=== PATIENT | female | born 1990 | race Caucasian/White ===

== ENCOUNTER 2019-03-14 19:46 | Observation (INO) | payer OTHER ==
[2019-03-14] MEDS ORDERED: SODIUM CHLORIDE 0.9% (FLUSH) 10 ML SYG IV PRN (20:14)
[2019-03-14] MEDS ORDERED: KETOROLAC TROMETHAMINE INJ 30 MG/ML VIAL IV ONE (20:15)
[2019-03-14] MEDS ORDERED: traMADol 37.5MG/APAP 325MG 1 EA TAB PO ONE (20:15)
--- NOTE | 2019-03-14 20:18 | ED.PDOC ---
History of Present Illness - General Chief Complaint: Lower Extremity Injury Stated Complaint: pain, edema to lower left leg Time Seen by Provider: 03/14/19 19:58 Source: patient Exam Limitations: no limitations - History of Present Illness Initial Comments: PT PRESENTS WITH COMPLAINT OF LEFT CALF PAIN THAT OCCURRED ABOUT 2 WEEKS AFTER INJURY TO LEFT LOWER CALF. PT REPORTS THE PAIN FROM THE INJURY IMPROVED HOWEVER, SHE DEVELOPED LEFT CALF PAIN ABOUT 1 WEEK AFTER RESOLUTION. PT IS CONCERNED ABOUT THE POSSIBILITY OF DVT. PT DENIES, FEVER, CHILLS, OR LLE SWELLING. Pain - Lower Extremity: moderate: Left Calf Method of Injury: direct blow Improving Factors: immobilization Worsening Factors: movement, other - WEIGHT BEARING Allergies/Adverse Reactions: Allergies NO KNOWN ALLERGY Allergy (Verified 03/14/19 20:12) Home Medications: Ambulatory Orders Amlodipine Besylate [Norvasc] 2.5 mg PO DAILY 03/14/19 Sertraline HCl 100 mg PO DAILY 03/14/19 Review of Systems - Review of Systems Constitutional: Denies: chills, fever EENTM: Denies: nose congestion, throat pain Respiratory: Denies: cough, short of breath Cardiology: Denies: chest pain, palpitations Gastrointestinal/Abdominal: Denies: diarrhea, nausea, vomiting Genitourinary: Denies: dysuria, frequency Musculoskeletal: States: see HPI, muscle pain. Denies: joint pain, joint swelling Skin: Denies: change in color, dryness Neurological: Denies: headache, numbness, paresthesia Past Medical History (General) - Patient Medical History Hx Seizures: Yes - Pre eclampsic Hx Hypertension: Yes - Vaccination History Hx Influenza Vaccination: Yes - Social History Hx Alcohol Use: No - Female History Patient : No Family Medical History - Family History Father Family History: Unknown Physical Exam - Physical Exam General Appearance: Alert, No apparent distress, Well Developed, Well Groomed, Well Hydrated Eyes, Ears, Nose, Throat: normal ENT inspection Neck: supple, normal inspection Cardiovascular/Respiratory: no respiratory distress Thigh/Hip: non-tender, no evidence of injury Leg: no evidence of injury, normal ROM, soft tissue tenderness - ALONG MEDIAL ASPECT OF LEFT CALF, NO SWELLING OR ERYTHEMA NOTED. Knee: non-tender, no evidence of injury Ankle: non-tender, no evidence of injury Foot: non-tender, no evidence of injury Neuro/Tendon: normal sensation, normal motor functions, normal tendon functions Mental Status: alert, oriented x 3 Skin: normal color, warm/dry Progress - Progress Progress: 03/14/19 21:52 PT REPORTS SIGNIFICANT IMPROVEMENT IN PAIN AFTER IV TORADOL AND ULTRACET. LABS, DIAGNOSTICS, AND PLAN TO ANTICOAGULATE, ADMIT FOR OBSERVATION OVERNIGHT AND OBTAIN DVT STUDY IN THE AM DISCUSSED - Results/Orders Results/Orders: Laboratory Tests 03/14/19 03/14/19 03/14/19 20:40 20:40 20:40 WBC 8.2 RBC 4.64 Hgb 13.7 Hct 40.7 MCV 87.6 MCH 29.6 MCHC 33.8 RDW 13.5 Plt Count 266 MPV 8.1 Absolute Neuts (auto) 4.20 Absolute Lymphs (auto) 3.20 Absolute Monos (auto) 0.50 Absolute Eos (auto) 0.20 Absolute Basos (auto) 0.10 Neutrophils % 51.6 Lymphocytes % 39.0 Monocytes % 6.1 Eosinophils % 2.6 Basophils % 0.7 D-Dimer, Quantitative 0.66 H* Sodium 139 Potassium 4.4 Chloride 104 Carbon Dioxide 23 Anion Gap 16.4 BUN 21 H Creatinine 0.69 BUN/Creatinine Ratio 30.4 H Random Glucose 91 Serum Osmolality 280.1 Calcium 9.7 Total Bilirubin 0.3 AST 20 ALT 20 Alkaline Phosphatase 78 Serum Total Protein 7.7 Albumin 4.5 Globulin 3.2 Albumin/Globulin Ratio 1.4 Departure - Departure Clinical Impression: Tenderness of left calf, Suspected DVT (deep vein thrombosis) Time of Disposition: 21:51 Disposition: Admit Patient Condition: Good Departure Forms: ED Discharge - Pt. Copy, Patient Portal Self Enrollment Instructions: DI for Leg Pain Home Medications: Ambulatory Orders Amlodipine Besylate [Norvasc] 2.5 mg PO DAILY 03/14/19 Sertraline HCl 100 mg PO DAILY 03/14/19 Decision To Admit - Decistion To Admit Decision to Admit Reason: Admit from ER Decision to Admit Date: 03/14/19 Decision to Admit Time: 21:53 - CASE DISCUSSED WITH SCOTT RAINEY NP WHO AGREES TO ADMIT
[2019-03-14] MEDS ORDERED: ENOXAPARIN SODIUM 80 MG/0.8 ML SYG SUBCU ONE (22:09)
[2019-03-15] MEDS ORDERED: ALUM & MAG HYDROX-SIMETHICONE 30 ML UD PO PRN (00:07)
[2019-03-15] MEDS ORDERED: ACETAMINOPHEN 325 MG TAB PO PRN (00:07)
[2019-03-15] MEDS ORDERED: ONDANSETRON INJ 4 MG/2 ML VIAL IV PRN (00:07)
[2019-03-15] MEDS ORDERED: MAGNESIUM HYDROXIDE 30 ML UD PO PRN (00:07)
[2019-03-15] MEDS ORDERED: SODIUM CHLORIDE 0.9% (FLUSH) 10 ML SYG IV PRN (00:07)
[2019-03-15] MEDS ORDERED: HYDROcodone 5MG/APAP 325MG 1 EA TAB PO PRN (00:20)
[2019-03-15] MEDS ORDERED: IV SET AND CAP CHANGE INJ INJ SCH (00:30)
[2019-03-15] MEDS ORDERED: SERTRALINE HCL 50 MG TAB PO SCH ×2 (09:00→21:00)
[2019-03-15] MEDS ORDERED: ENOXAPARIN SODIUM 80 MG/0.8 ML SYG SUBCU SCH (09:00)
[2019-03-15] MEDS ORDERED: amLODIPine BESYLATE 5 MG TAB PO SCH (09:00)
[2019-03-15 10:38] VITALS: O2SAT 97
--- NOTE | 2019-03-15 13:38 | RAD ---
EXAM DESCRIPTION: Ankle,Left 2 Views CLINICAL HISTORY: 29 years, Female, ankle pain COMPARISON: None. TECHNIQUE: AP/lateral/oblique of the left ankle FINDINGS: Intact medial and lateral malleolus. There is no soft tissue swelling laterally or medially. Intact proximal metatarsals. Intact dome of the talus. Lateral view shows no evidence of acute fracture of the body of the talus or calcaneus. No calcaneal spurring is seen. At the talonavicular joint, there is evidence of old trauma or degenerative spurring. IMPRESSION: Negative for acute fracture or dislocation. Electronically signed by: Kenton Swartz MD 03/15/2019 1:34 PM CDT
--- NOTE | 2019-03-15 13:43 | US ---
EXAM DESCRIPTION: Venous,Lower Extremity LT: ULTRASOUND. CLINICAL HISTORY: LLE edema elevated with elevated d-dimer COMPARISON: None Available. TECHNIQUE: Teresa-scale and doppler sonographic evaluation of the deep venous system of the left lower extremity. FINDINGS: Doppler evaluation shows normal color flow and normal phasicity and augmentation of the LEFT common femoral vein, femoral vein, popliteal vein, greatersaphenous vein, peroneal, and posterior tibial vein. The left lower extremity deep veins were completely compressible; normal occlusion with transducer pressure. Teresa-scale survey showed no echogenic thrombus within these veins. IMPRESSION: 1. Duplex ultrasound evaluation of the left lower extremity deep venous system showing no evidence of thrombosis. Electronically signed by: Semaj Mills MD 03/15/2019 1:40 PM CDT
[2019-03-15 14:09] VITALS: BP 115/79; TEMP 98.3
--- NOTE | 2019-03-15 23:44 | RAD ---
EXAM DESCRIPTION: Tibia/Fibula,Left CLINICAL HISTORY: 29 years Female, ankle pain COMPARISON: None. FINDINGS: No fracture or dislocation. Soft tissues are unremarkable. IMPRESSION: No acute abnormality. Electronically signed by: Tushar Peters DO 03/15/2019 11:41 PM CDT
--- NOTE | 2019-03-16 08:51 | SSS ---
SUPERVISING PHYSICIAN: Messi King MD DATE OF ADMISSION: 03/15/19 DATE OF DISCHARGE: 03/15/19 CHIEF COMPLAINT: Left ankle pain. HISTORY OF PRESENT ILLNESS: Ms. Fairbanks is a 29-year-old female patient that presented to the Emergency Room last night complaining of left ankle pain. 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 She did not have any medical attention at that time and this past weekend traveled to [place] for 3 hours and on returning home, she continued to have increasing pain. She does have a history of previous pulmonary emboli while she was on hormonal control and was concerned that she might have a deep venous thrombosis in the left leg. She was seen in the Emergency Room and had an elevated D-dimer of 0.66. Given her history, Dr. Carrillo, the Emergency Room physician, requested the patient be admitted and started on treatment for possible left lower extremity DVT awaiting the ultrasound to further rule out any deep venous thrombosis. She was placed in observation in stable condition. PAST MEDICAL HISTORY: 1. 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 2. Hypertension, controlled. PAST SURGICAL HISTORY: 1. . HOME MEDICATIONS: 1. Sertraline 50 mg daily. 2. Norvasc 2.5 mg daily. ALLERGIES: NO KNOWN DRUG ALLERGIES. FAMILY HISTORY: History hypertension, but history that she knows of with blood clots or clotting issues. 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 She lives in [place], [place]. She has one child. She is . She has never smoked, she does not drink alcohol, she does not use illicit drugs. REVIEW OF SYSTEMS: CONSTITUTIONAL: Negative for any general malaise, fevers, chills or unintentional weight loss. HEENT: Negative for sore throats, earaches, nasal congestion, headaches. RESPIRATORY: Denies shortness of breath, chest pain, wheezing or coughing. CARDIOVASCULAR: Negative for chest pain, tachycardia or syncopal episodes. GASTROINTESTINAL: Negative for nausea, vomiting, diarrhea, constipation or abdominal pain. GENITOURINARY: Negative for dysuria, hematuria, polyuria. EXTREMITIES: As noted in history of present illness. NEUROLOGIC: Negative for any ataxia, seizures, syncopal episodes. HEMATOLOGIC: Positive as noted in history of present illness for previous pulmonary embolism secondary to hormonal control therapy. PHYSICAL EXAMINATION: VITAL SIGNS: Temperature 97.4. Pulse 79. Blood pressure 120/83. Respirations 16. Oxygen saturation 98% on room air. Weight 84.0 kg. GENERAL: The patient appears to be comfortable, in no acute distress. HEENT: Tympanic membranes clear bilaterally. Oropharynx is pink, moist without any lesions. NECK: Supple, nontender with full range of motion. No jugular venous distention noted. RESPIRATORY: Lungs clear to auscultation bilaterally without any rhonchi, wheezes or rales. CARDIOVASCULAR: Regular rate and rhythm without any appreciable murmurs, gallops, or rubs. ABDOMEN: Soft, nontender. Positive bowel sounds. EXTREMITIES: Left lower extremity shows no notable erythema to the medial aspect of the ankle. It is warm to touch. No obvious evidence of injury. No swelling. NEUROLOGIC: The patient is alert and oriented times three. SKIN: [place], warm and dry. LABORATORY: CBC is within normal limits. D-dimer is elevated at 0.66. Chemistry shows normal electrolytes with BUN 21. Serum HCG was negative. RADIOLOGY: Ankle x-ray was negative for acute fracture dislocation per radiologic interpretation. She also had a lower extremity ultrasound study of the left leg without any evidence of deep venous thrombosis. ADMISSION DIAGNOSIS: 1. Left lower extremity pain with concerns for deep venous thrombosis with the patient having a history of previous physical examination and elevated D-dimer on admission. 2. Hypertension. 3. Depression and anxiety. DISCHARGE DIAGNOSIS: 1. left lower extremity pain, uncertain etiology, without any findings of deep venous thrombosis or trauma, no any acute fracture dislocations on radiographic study. 2. Hypertension, stable. 3. Anxiety and depression. HOSPITAL COURSE: Ms. Fairbanks was placed in observation from the Emergency Room and started on DVT treatment and had an ultrasound of the left lower extremity. She was started on Lovenox 1 mg/kg. She was given pain medicine as needed. After sonography was available early in the morning, she was found to be without any evidence of deep venous thrombosis, no acute fractures. Therefore, she was found to be clinically stable for discharge. PLAN: Ms. Fairbanks was discharged to followup with her primary care provider. She was instructed to return to normal activities as tolerated. Diet was regular diet as tolerated. She was to utilize Tylenol or aspirin for pain control. Since she had previous pulmonary embolism, she was encouraged that should she have any worsening symptoms, any shortness of breath that is unexplained or any worrisome other symptoms, she was to return to the Emergency Room for further evaluation. DISPOSITION: The patient was discharged to home to care of . CONDITION AT DISCHARGE: Stable and improved. #[id number] MTDD
== END 2019-03-15 15:55 | disposition home or self-care (01) ==
LOC: ER 19:46 → MS 23:56
PROVIDERS: ADMIT Nurse Practitioner Family; ATTEND Nurse Practitioner Family
DX: M79.662 Pain in left lower leg (principal); M25.572 Pain in left ankle and joints of left foot; I10 Essential (primary) hypertension; F41.9 Anxiety disorder, unspecified; F32.9 Major depressive disorder, single episode, unspecified; Z86.711 Personal history of pulmonary embolism; Z79.899 Other long term (current) drug therapy
CPT/HCPCS: 96374; 96372 ×2; J1885; J1650 ×2; 85379; 80053; 36415 ×2; 85025; 84703; 73590; 73600; 93971; 99285; G0378

== ENCOUNTER → 2020-09-24 | Outpatient (CLI) | payer BC, OTHER | LOC: GMA MATASK 16:56 | PROVIDERS: ATTEND Family Medicine | DX: R30.0 Dysuria (principal) ==